=== PATIENT | female | born 1955 | race Caucasian/White ===

== ENCOUNTER 2020-04-14 11:05 | Emergency (ER) | payer OTHER ==
[~2020-04-14] VITALS: Ht 160 cm; Wt 95.7 kg
[~2020-04-14 11:05] MED LIST: ALLERGY RELIEF60 MG PO; ALLOPURINOL300 MG PO; ASPIRIN CHEWABL81 MG PO; ATORVASTATIN CA20 MG PO; BUTALB-ACETAMI1 EAC1 PO; CEFDINIR300 MG PO; CENTRUM COMPLE1 EACH PO; CLEOCIN HCL300 MG PO; CLOPIDOGREL75 MG PO; FENOFIBRATE160 MG PO; FISH OIL 1,0001 EAC5 PO; GLUCOPHAGE 500500 MG PO; LANTUS100 UNIT/1 SQ; LIPITOR TAB 2020 MG PO; LISINOPRIL10 MG PO; LOPRESSOR 25 MG25 MG PO; MAXZIDE 75 MG-1 EACH PO; NITROSTAT 0.40.4 MG SL; PAXIL20 MG PO; SIMVASTATIN20 MG PO; TRAMADOL HCL50 MG PO; TRIAMTERENE-HC1 EACH PO; VITAMIN D21250 MCG PO; ZOFRAN 8 MG TAB8 MG PO
[2020-04-14 11:57] LABS: HEMOGLOBIN 13.6 gm/dl (12.3-15.3); RED BLOOD COUNT 4.8 M/UL (4.00-5.10); WHITE BLOOD COUNT 8.7 K/UL (4.5-11.0)
[2020-04-14 12:22] LABS: BUN/CREATININE RATIO 19 (0-10)
[2020-04-14] MEDS ORDERED: NITROGLYCERIN0.4 MG SL (19:34)
[2020-04-14] MEDS ORDERED: LISINOPRIL20 MG PO (19:34)
[2020-04-14] MEDS ORDERED: IMDUR ER TAB 3030 MG PO (19:38)
[2020-04-15 03:25] LABS: HEMOGLOBIN 14.1 gm/dl (12.3-15.3); RED BLOOD COUNT 4.98 M/UL (4.00-5.10); WHITE BLOOD COUNT 9.4 K/UL (4.5-11.0)
== END 2020-04-16 01:07 | disposition short-term general hospital (02) ==
LOC: ER1 11:05 → ZEROF 14:20 → ER1 14:20 → ZEROF 14:20 → ER1 04-16 01:07
PROVIDERS: Family Medicine; Physician Assistant Medical
DX: I11.0 Hypertensive heart disease with heart failure (principal); I50.23 Acute on chronic systolic (congestive) heart failure; R79.89 Other specified abnormal findings of blood chemistry; I25.10 Atherosclerotic heart disease of native coronary artery without angina pectoris; E78.5 Hyperlipidemia, unspecified; E11.9 Type 2 diabetes mellitus without complications; I44.7 Left bundle-branch block, unspecified; I25.2 Old myocardial infarction; F41.9 Anxiety disorder, unspecified; E66.9 Obesity, unspecified; Z88.5 Allergy status to narcotic agent; Z88.6 Allergy status to analgesic agent; Z79.02 Long term (current) use of antithrombotics/antiplatelets; Z79.82 Long term (current) use of aspirin; Z79.4 Long term (current) use of insulin; Z79.899 Other long term (current) drug therapy; Z85.830 Personal history of malignant neoplasm of bone; Z98.890 Other specified postprocedural states; Z90.49 Acquired absence of other specified parts of digestive tract; Z20.822 Contact with and (suspected) exposure to COVID-19
CPT/HCPCS: ECHO; 71045; 71046; 80048; 80053; 81001; 82550; 82553; 82962; 83735; 83874; 83880; 84484; 85025; 85027; 85610; 93005; 93306; 96372; 96374; 96375; 96376; 99285; J1940; U0002

== ENCOUNTER 2020-06-01 14:15 | Emergency (ER) | payer OTHER ==
[~2020-06-01 14:15] MED LIST changes: +IMDUR ER TAB 3030 MG PO; +LISINOPRIL20 MG PO; +NITROGLYCERIN0.4 MG SL
[2020-06-01 17:12] LABS: HEMOGLOBIN 13.8 gm/dl (12.3-15.3); RED BLOOD COUNT 4.83 M/UL (4.00-5.10); WHITE BLOOD COUNT 10.4 K/UL (4.5-11.0)
[2020-06-01] MEDS ORDERED: BUMETANIDE1 MG PO (21:16)
[2020-06-01] MEDS ORDERED: K-DUR TAB 20 M20 MEQ PO (21:16)
== END 2020-06-01 21:31 | disposition home or self-care (01) ==
LOC: ER1 14:15
PROVIDERS: Physician Assistant
DX: I13.0 Hypertensive heart and chronic kidney disease with heart failure and stage 1 through stage 4 chronic kidney disease, or unspecified chronic kidney disease (principal); I50.9 Heart failure, unspecified; E78.5 Hyperlipidemia, unspecified; E11.22 Type 2 diabetes mellitus with diabetic chronic kidney disease; I25.10 Atherosclerotic heart disease of native coronary artery without angina pectoris; I25.2 Old myocardial infarction; Z79.899 Other long term (current) drug therapy; Z90.49 Acquired absence of other specified parts of digestive tract
CPT/HCPCS: 71045; 71250; 80053; 82550; 82553; 83690; 83874; 83880; 84484; 85025; 93005; 96374; 99285

== ENCOUNTER 2020-06-04 13:26 | Observation (INO) | payer OTHER ==
[~2020-06-04] VITALS: Ht 162.6 cm; Wt 75.8 kg
[~2020-06-04 13:26] MED LIST changes: +BUMETANIDE1 MG PO; +K-DUR TAB 20 M20 MEQ PO
[2020-06-04 15:18] LABS: RED BLOOD COUNT 4.91 M/UL (4.00-5.10); WHITE BLOOD COUNT 8.4 K/UL (4.5-11.0)
[2020-06-04 15:43] LABS: BUN/CREATININE RATIO 15 (0-10)
[2020-06-04] MEDS ORDERED: GLUCOPHAGE1000 MG PO (19:44)
[2020-06-04] MEDS ORDERED: LANTUS SOL100 UNIT/1 SQ (19:46)
[2020-06-04] MEDS ORDERED: NITROGLYCERIN (19:47)
[2020-06-05 02:29] LABS: HEMOGLOBIN 13.3 gm/dl (12.3-15.3); RED BLOOD COUNT 4.65 M/UL (4.00-5.10)
[2020-06-05 02:55] LABS: BUN/CREATININE RATIO 24 (0-10)
== END 2020-06-05 16:15 | disposition home or self-care (01) ==
LOC: ER1 13:26 → CDU 16:08 → M/S 22:57
PROVIDERS: Emergency Medicine; Physician Assistant; ADMIT Internal Medicine Infectious Disease
DX: I11.0 Hypertensive heart disease with heart failure (principal); I50.23 Acute on chronic systolic (congestive) heart failure; I25.10 Atherosclerotic heart disease of native coronary artery without angina pectoris; I25.2 Old myocardial infarction; I44.7 Left bundle-branch block, unspecified; E11.9 Type 2 diabetes mellitus without complications; M10.9 Gout, unspecified; E78.5 Hyperlipidemia, unspecified; F41.9 Anxiety disorder, unspecified; E66.2 Morbid (severe) obesity with alveolar hypoventilation; Z68.38 Body mass index [BMI] 38.0-38.9, adult; Z79.82 Long term (current) use of aspirin; Z79.02 Long term (current) use of antithrombotics/antiplatelets; Z79.4 Long term (current) use of insulin; Z79.899 Other long term (current) drug therapy; Z20.822 Contact with and (suspected) exposure to COVID-19; Z88.5 Allergy status to narcotic agent; Z88.8 Allergy status to other drugs, medicaments and biological substances; Z95.5 Presence of coronary angioplasty implant and graft; Z90.49 Acquired absence of other specified parts of digestive tract; Z98.890 Other specified postprocedural states; Z91.14 Patient's other noncompliance with medication regimen; Z91.19 Patient's noncompliance with other medical treatment and regimen
CPT/HCPCS: 36415; 71045; 80048; 80053; 82550; 82553; 82962; 83874; 83880; 84484; 85025; 85379; 87040; 93005; 96365; 96372; 96374; 96375; 99285; G0008; G0378; J0696; U0002

== ENCOUNTER → 2020-07-16 | Outpatient (CLI) | payer OTHER ==
[~2020-07-16] MED LIST changes: +AZITHROMYCIN250 MG PO; +CEFUROXIME500 MG PO; +GLUCOPHAGE1000 MG PO; +IBUPROFEN400 MG PO; +LANTUS SOL100 UNIT/1 SQ; +NITROGLYCERIN
== END ==
LOC: MAMO 10:00
DX: Z12.31 Encounter for screening mammogram for malignant neoplasm of breast (principal)
CPT/HCPCS: 77063; 77067

== ENCOUNTER 2020-07-27 22:56 | Inpatient (IN) | payer OTHER ==
[~2020-07-27] VITALS: Ht 160 cm; Wt 102.7 kg
[~2020-07-27 22:56] MED LIST changes: -AZITHROMYCIN250 MG PO; -CEFUROXIME500 MG PO; -IBUPROFEN400 MG PO
[2020-07-27 23:52] LABS: HEMOGLOBIN 13.4 gm/dl (12.3-15.3); RED BLOOD COUNT 4.67 M/UL (4.00-5.10); WHITE BLOOD COUNT 14.5 K/UL (4.5-11.0)
[2020-07-27 23:57] LABS: BUN/CREATININE RATIO 19 (0-10)
[2020-07-29 05:29] LABS: HEMOGLOBIN 12.3 gm/dl (12.3-15.3); RED BLOOD COUNT 4.36 M/UL (4.00-5.10); WHITE BLOOD COUNT 9.6 K/UL (4.5-11.0)
[2020-07-31] MEDS ORDERED: CEFUROXIME500 MG PO (08:49)
[2020-07-31] MEDS ORDERED: AZITHROMYCIN250 MG PO (08:49)
== END 2020-07-31 11:31 | disposition home or self-care (01) | DRG 871 ==
LOC: ER1 22:56 → PROG CARE 07-28 00:48 → CDU 07-28 00:48 → PROG CARE 07-28 02:19
PROVIDERS: Internal Medicine; ADMIT Internal Medicine
DX: A41.9 Sepsis, unspecified organism (principal); J96.01 Acute respiratory failure with hypoxia; J18.9 Pneumonia, unspecified organism; I50.43 Acute on chronic combined systolic (congestive) and diastolic (congestive) heart failure; N17.9 Acute kidney failure, unspecified; Z68.41 Body mass index [BMI] 40.0-44.9, adult; Z20.822 Contact with and (suspected) exposure to COVID-19; I11.0 Hypertensive heart disease with heart failure; I25.10 Atherosclerotic heart disease of native coronary artery without angina pectoris; E11.9 Type 2 diabetes mellitus without complications; E66.01 Morbid (severe) obesity due to excess calories; F32.9 Major depressive disorder, single episode, unspecified; G89.29 Other chronic pain; G47.33 Obstructive sleep apnea (adult) (pediatric); F41.9 Anxiety disorder, unspecified; M10.9 Gout, unspecified; Z79.4 Long term (current) use of insulin; Z79.82 Long term (current) use of aspirin; Z95.5 Presence of coronary angioplasty implant and graft; Z88.6 Allergy status to analgesic agent; Z88.8 Allergy status to other drugs, medicaments and biological substances; I25.2 Old myocardial infarction
CPT/HCPCS: 0240U; 36415; 36600; 71045; 71046; 80053; 80202; 81001; 82550; 82553; 82803; 82962; 83036; 83605; 83690; 83735; 83874; 83880; 84100; 84484; 85025; 85610; 85730; 86140; 87040; 87086; 93005; 94760; 96365; 96368; 97162; 99285; J0456; J0696; J1650; J2405; J3370; J7030; J7070

== ENCOUNTER → 2020-08-04 | Outpatient (CLI) | payer OTHER ==
[~2020-08-04] MED LIST changes: +AZITHROMYCIN250 MG PO; +CEFUROXIME500 MG PO; +IBUPROFEN400 MG PO
== END ==
LOC: SLEEP 10:07
DX: G47.33 Obstructive sleep apnea (adult) (pediatric) (principal)
CPT/HCPCS: 95810

== ENCOUNTER 2020-09-20 15:26 | Emergency (ER) | payer OTHER ==
[~2020-09-20 15:26] MED LIST changes: -IBUPROFEN400 MG PO
[2020-09-20] MEDS ORDERED: IBUPROFEN400 MG PO (17:25)
== END 2020-09-20 17:45 | disposition home or self-care (01) ==
LOC: ER1 15:26
DX: S80.12XA Contusion of left lower leg, initial encounter (principal); E11.9 Type 2 diabetes mellitus without complications; I50.9 Heart failure, unspecified; W22.8XXA Striking against or struck by other objects, initial encounter
CPT/HCPCS: 73590; 93971; 99284

== ENCOUNTER 2020-11-06 00:36 | Emergency (ER) | payer OTHER ==
[~2020-11-06 00:36] MED LIST changes: +IBUPROFEN400 MG PO
[2020-11-06 01:01] LABS: HEMOGLOBIN 13.2 gm/dl (12.3-15.3); RED BLOOD COUNT 4.57 M/UL (4.00-5.10); WHITE BLOOD COUNT 10.6 K/UL (4.5-11.0)
[2020-11-06 01:24] LABS: BUN/CREATININE RATIO 15 (0-10)
== END 2020-11-06 05:15 | disposition home or self-care (01) ==
LOC: ER1 00:36
PROVIDERS: Physician Assistant
DX: J06.9 Acute upper respiratory infection, unspecified (principal); I11.0 Hypertensive heart disease with heart failure; I50.20 Unspecified systolic (congestive) heart failure; G47.30 Sleep apnea, unspecified; E87.2 Acidosis; E11.65 Type 2 diabetes mellitus with hyperglycemia; E78.5 Hyperlipidemia, unspecified; I25.2 Old myocardial infarction; E11.9 Type 2 diabetes mellitus without complications; Z90.49 Acquired absence of other specified parts of digestive tract; Z88.1 Allergy status to other antibiotic agents; Z88.5 Allergy status to narcotic agent; Z88.8 Allergy status to other drugs, medicaments and biological substances; Z20.822 Contact with and (suspected) exposure to COVID-19
CPT/HCPCS: 71045; 80053; 82550; 82553; 83605; 83874; 83880; 84484; 85025; 87040; 93005; 96374; 99285; J1940; U0002

== ENCOUNTER 2021-02-12 13:56 | Inpatient (IN) | payer OTHER ==
[~2021-02-12] VITALS: Ht 162.6 cm; Wt 101.2 kg
[~2021-02-12 13:56] MED LIST changes: -CENTRUM COMPLE1 EACH PO; -LOPRESSOR 25 MG25 MG PO; -VITAMIN D21250 MCG PO
[2021-02-12 15:01] LABS: RED BLOOD COUNT 5.18 M/UL (4.00-5.10); WHITE BLOOD COUNT 11.8 K/UL (4.5-11.0)
[2021-02-12 15:26] LABS: BUN/CREATININE RATIO 25 (0-10)
[2021-02-12] MEDS ORDERED: SPIRONOLACTONE25 MG PO (19:05)
[2021-02-12] MEDS ORDERED: ASPIRIN EC81 MG PO (19:12)
[2021-02-12] MEDS ORDERED: POTASSIUM CHLO10 ME1 PO (19:13)
[2021-02-13 05:50] LABS: HEMOGLOBIN 13.8 gm/dl (12.3-15.3); RED BLOOD COUNT 4.95 M/UL (4.00-5.10); WHITE BLOOD COUNT 10.3 K/UL (4.5-11.0)
[2021-02-14 06:15] LABS: HEMOGLOBIN 13.8 gm/dl (12.3-15.3); RED BLOOD COUNT 4.8 M/UL (4.00-5.10); WHITE BLOOD COUNT 9.5 K/UL (4.5-11.0)
[2021-02-16 06:54] LABS: HEMOGLOBIN 13.1 gm/dl (12.3-15.3); RED BLOOD COUNT 4.59 M/UL (4.00-5.10); WHITE BLOOD COUNT 9.6 K/UL (4.5-11.0)
[2021-02-16] MEDS ORDERED: BUMETANIDE1 MG PO (15:39)
--- NOTE | 2021-02-17 09:09 | NUR ---
PATIENT ROOM AIR SATURATION 86%
[2021-02-23] MEDS ORDERED: VITAMIN D21250 MCG PO (06:46)
[2021-02-23] MEDS ORDERED: BUMETANIDE1 MG PO (17:18)
[2021-02-23] MEDS ORDERED: LOPRESSOR 25 MG25 MG PO (18:35)
[2021-02-23] MEDS ORDERED: DAILY VALUE1 EACH PO (21:28)
== END 2021-02-17 12:04 | disposition home or self-care (01) | DRG 291 ==
LOC: ER1 13:56 → M/S 18:00 → CDU 18:00 → M/S 18:35
PROVIDERS: Emergency Medicine; ADMIT Internal Medicine Infectious Disease
PROC: 5A09457 Assistance with Respiratory Ventilation, 24-96 Consecutive Hours, Continuous Positive Airway Pressure (ICD-10-PCS; principal; 2021-02-13)
DX: I13.0 Hypertensive heart and chronic kidney disease with heart failure and stage 1 through stage 4 chronic kidney disease, or unspecified chronic kidney disease (principal); I50.23 Acute on chronic systolic (congestive) heart failure; J96.01 Acute respiratory failure with hypoxia; E66.2 Morbid (severe) obesity with alveolar hypoventilation; N17.9 Acute kidney failure, unspecified; Z20.822 Contact with and (suspected) exposure to COVID-19; G47.33 Obstructive sleep apnea (adult) (pediatric); E78.5 Hyperlipidemia, unspecified; F41.9 Anxiety disorder, unspecified; I44.7 Left bundle-branch block, unspecified; N18.30 Chronic kidney disease, stage 3 unspecified; E86.0 Dehydration; A08.4 Viral intestinal infection, unspecified; E87.5 Hyperkalemia; R51.9 Headache, unspecified; E11.22 Type 2 diabetes mellitus with diabetic chronic kidney disease; I25.10 Atherosclerotic heart disease of native coronary artery without angina pectoris; Z95.5 Presence of coronary angioplasty implant and graft; Z99.81 Dependence on supplemental oxygen; Z85.830 Personal history of malignant neoplasm of bone; Z86.010 Personal history of colon polyps; Z98.891 History of uterine scar from previous surgery; Z90.49 Acquired absence of other specified parts of digestive tract; Z82.3 Family history of stroke; Z80.1 Family history of malignant neoplasm of trachea, bronchus and lung; Z80.0 Family history of malignant neoplasm of digestive organs; Z79.01 Long term (current) use of anticoagulants; Z79.82 Long term (current) use of aspirin; Z68.38 Body mass index [BMI] 38.0-38.9, adult; Z79.84 Long term (current) use of oral hypoglycemic drugs
CPT/HCPCS: 36415; 71045; 71046; 80048; 80053; 81001; 82043; 82533; 82550; 82553; 82570; 82962; 83036; 83605; 83690; 83735; 83874; 83880; 84156; 84439; 84443; 84484; 85025; 85379; 85652; 87040; 93005; 94760; 96372; 96374; 96375; 96376; 97116-GP-CQ; 97162; 97165; 99285; C9113; G0378; J1650; J1940; J2405; Q9967; U0002

== ENCOUNTER 2021-03-03 14:31 | Inpatient (IN) | payer OTHER ==
[~2021-03-03] VITALS: Ht 160 cm; Wt 57.2 kg
[~2021-03-03 14:31] MED LIST changes: +ASPIRIN EC81 MG PO; +AUGMENTIN 875-1 EACH PO; +DAILY VALUE1 EACH PO; +LASIX40 MG PO; +LOPRESSOR 25 MG25 MG PO; +POTASSIUM CHLO10 ME1 PO; +SPIRONOLACTONE25 MG PO; +VITAMIN D21250 MCG PO
[2021-03-03 16:22] LABS: HEMOGLOBIN 14.3 gm/dl (12.3-15.3); RED BLOOD COUNT 4.98 M/UL (4.00-5.10); WHITE BLOOD COUNT 9.2 K/UL (4.5-11.0)
[2021-03-03] MEDS ORDERED: CLOPIDOGREL75 MG PO (18:59)
[2021-03-03] MEDS ORDERED: FUROSEMIDE40 MG PO (19:00)
[2021-03-04 04:07] LABS: WHITE BLOOD COUNT 8.1 K/UL (4.5-11.0)
[2021-03-04 04:39] LABS: BUN/CREATININE RATIO 24 (0-10)
[2021-03-06 06:08] LABS: HEMOGLOBIN 13.7 gm/dl (12.3-15.3); RED BLOOD COUNT 4.8 M/UL (4.00-5.10); WHITE BLOOD COUNT 7.4 K/UL (4.5-11.0)
[2021-03-07 06:24] LABS: HEMOGLOBIN 12.6 gm/dl (12.3-15.3); RED BLOOD COUNT 4.37 M/UL (4.00-5.10); WHITE BLOOD COUNT 6.6 K/UL (4.5-11.0)
--- NOTE | 2021-03-10 15:06 | NUR ---
TELEPHONED DR. GLASER REGARDING PATIENT'S HEART RATE IN 140'S. PATIENT IS SITTING ON SIDE OF BED, VISIBLY SHORT OF BREATH. OXYGEN SATURATION ON 4 LPM IS HIGH 80'S TO LOW 90'S. PATIENT COMPLAINS OF CHEST "POUNDING," NEW ORDER FOR PORTABLE CXR AND X1 DOSE LASIX IV 40 MG.
--- NOTE | 2021-03-10 16:06 | NUR ---
INSTRUCTED PER DR. GLASER AND DR. MATHEWS TO STOP DOBUTAMINE IV FOR NOW. WILL CLARIFY FURTHER USE OF MEDICATION WITH DR. MATHEWS WHEN HE ROUNDS.
[2021-03-11 07:34] LABS: HEMOGLOBIN 14.1 gm/dl (12.3-15.3); RED BLOOD COUNT 5.09 M/UL (4.00-5.10); WHITE BLOOD COUNT 5.5 K/UL (4.5-11.0)
[2021-03-14 06:28] LABS: HEMOGLOBIN 13.6 gm/dl (12.3-15.3); RED BLOOD COUNT 4.86 M/UL (4.00-5.10); WHITE BLOOD COUNT 5.9 K/UL (4.5-11.0)
[2021-03-17 07:22] LABS: HEMOGLOBIN 12.7 gm/dl (12.3-15.3); RED BLOOD COUNT 4.74 M/UL (4.00-5.10); WHITE BLOOD COUNT 7.1 K/UL (4.5-11.0)
[2021-03-18 07:43] LABS: RED BLOOD COUNT 4.61 M/UL (4.00-5.10)
--- NOTE | 2021-03-19 11:41 | NUR ---
SPOKE WITH [facility] ABOUT PATIENT STATUS. STILL NO BED AVAILABLE AT [facility] AT THIS TIME.
--- NOTE | 2021-03-19 18:26 | NUR ---
REPORT CALLED TO PSYCHIATRIC ICU TO ERROL GARVEY.
== END 2021-03-19 21:28 | disposition short-term general hospital (02) | DRG 286 ==
LOC: ER1 14:31 → MED SURG 4 22:12
PROVIDERS: Family Medicine; Internal Medicine Infectious Disease; Internal Medicine Nephrology; Physician Assistant; Physician Assistant Medical; ADMIT Internal Medicine
PROC: B24BZZ4 Ultrasonography of Heart with Aorta, Transesophageal (ICD-10-PCS; principal; 2021-03-05)
PROC: B2111ZZ Fluoroscopy of Multiple Coronary Arteries using Low Osmolar Contrast (ICD-10-PCS; 2021-03-14)
PROC: B24BZZ4 Ultrasonography of Heart with Aorta, Transesophageal (ICD-10-PCS; 2021-03-17)
PROC: B24BZZ4 Ultrasonography of Heart with Aorta, Transesophageal (ICD-10-PCS; 2021-03-18)
DX: I13.0 Hypertensive heart and chronic kidney disease with heart failure and stage 1 through stage 4 chronic kidney disease, or unspecified chronic kidney disease (principal); I50.43 Acute on chronic combined systolic (congestive) and diastolic (congestive) heart failure; J96.21 Acute and chronic respiratory failure with hypoxia; J18.9 Pneumonia, unspecified organism; N17.9 Acute kidney failure, unspecified; E87.1 Hypo-osmolality and hyponatremia; Z20.822 Contact with and (suspected) exposure to COVID-19; I25.10 Atherosclerotic heart disease of native coronary artery without angina pectoris; E11.22 Type 2 diabetes mellitus with diabetic chronic kidney disease; I44.7 Left bundle-branch block, unspecified; N18.30 Chronic kidney disease, stage 3 unspecified; R19.7 Diarrhea, unspecified; I34.0 Nonrheumatic mitral (valve) insufficiency; E87.5 Hyperkalemia; R74.01 Elevation of levels of liver transaminase levels; M10.9 Gout, unspecified; E66.9 Obesity, unspecified; I27.20 Pulmonary hypertension, unspecified; K21.9 Gastro-esophageal reflux disease without esophagitis; E78.5 Hyperlipidemia, unspecified; I95.9 Hypotension, unspecified; Z95.1 Presence of aortocoronary bypass graft; Z85.830 Personal history of malignant neoplasm of bone; Z98.890 Other specified postprocedural states; Z90.49 Acquired absence of other specified parts of digestive tract; Z88.5 Allergy status to narcotic agent; Z91.048 Other nonmedicinal substance allergy status; Z79.84 Long term (current) use of oral hypoglycemic drugs; Z79.899 Other long term (current) drug therapy; Z82.3 Family history of stroke; Z80.1 Family history of malignant neoplasm of trachea, bronchus and lung; Z80.8 Family history of malignant neoplasm of other organs or systems; Z90.89 Acquired absence of other organs; Z79.4 Long term (current) use of insulin
CPT/HCPCS: ECHO; 36415; 36600; 71045; 71046; 80048; 80053; 82550; 82553; 82803; 82962; 83735; 83874; 83880; 84484; 85025; 85027; 85379; 85610; 93005; 93306; 93308; 93312; 93320; 94640; 94664; 94760; 96372; 96374; 96375; 96376; 97161; 99152; 99153; 99285; C1769; G0378; J0583; J0692; J1160; J1250; J1335; J1644; J1650; J1940; J2250; J2310; J2405; J3010; J7040; Q9967; U0002

== ENCOUNTER 2021-08-20 11:17 | Emergency (ER) | payer OTHER ==
[~2021-08-20 11:17] MED LIST changes: +FUROSEMIDE40 MG PO
[2021-08-20 13:53] LABS: RED BLOOD COUNT 5.31 M/UL (4.00-5.10); WHITE BLOOD COUNT 6.1 K/UL (4.5-11.0)
[2021-08-20] MEDS ORDERED: MEDROL DOSEPAK 24 MG PO (15:14)
== END 2021-08-20 15:40 | disposition home or self-care (01) ==
LOC: ER1 11:17
PROVIDERS: Physician Assistant Medical
DX: R06.02 Shortness of breath (principal); R21 Rash and other nonspecific skin eruption; I11.0 Hypertensive heart disease with heart failure; I50.9 Heart failure, unspecified; E11.9 Type 2 diabetes mellitus without complications; Z95.0 Presence of cardiac pacemaker; Z88.5 Allergy status to narcotic agent; Z88.6 Allergy status to analgesic agent; Z88.8 Allergy status to other drugs, medicaments and biological substances
CPT/HCPCS: 71045; 80053; 82550; 82553; 83880; 84484; 85025; 93005; 96374; 99285

== ENCOUNTER → 2021-10-20 | Outpatient (CLI) | payer OTHER ==
[~2021-10-20] MED LIST changes: +MEDROL DOSEPAK 24 MG PO
== END ==
LOC: EXRD 14:00
DX: Z13.820 Encounter for screening for osteoporosis (principal); Z78.0 Asymptomatic menopausal state
CPT/HCPCS: 77080